=== PATIENT | female | born 1960 | race Caucasian/White ===

== ENCOUNTER → 2019-04-10 | Outpatient (CLI) | payer BC ==
--- NOTE | 2019-04-10 15:05 | Diagnostic Imaging Report ---
PROCEDURE: US Non-ob pelvis comp/trans. INDICATION: Nodules TECHNIQUE: Multiple real time jacques scale sonographic images were obtained of the pelvis transabdominally and transvaginally. CORRELATION STUDY: None FINDINGS: UTERUS: Enlarged at 13 x 9.7 x 7.1 cm. Multiple areas of heterogeneity are present with a mass type of appearance most compatible with fibroids. Largest 5.1 x 4.7 x 3.6 cm. Additional larger one 3.6 x 3.5 x 3.4 cm. ENDOMETRIUM: 10 mm. Endometrial thickness within normal limits for a premenopausal patient. (I have been given history of last menstrual period March first.) RIGHT OVARY: 2.5 x 3.2 x 1.5 cm Right ovary demonstrating transabdominal imaging only has a generally unremarkable appearance. LEFT OVARY: Not visualized on either transabdominal or transvaginal imaging. No significant free pelvic fluid. IMPRESSION: 1. Enlarged, probable fibroid uterus. Largest apparent fibroid approximately 5 cm in size. 2. Endometrial thickness at 10 mm. This would be considered within normal limits for premenopausal patient. I have been provided a history of previous LMP of 29 days ago. Clinical correlation regarding patient's menstrual history is recommended. Given age and if postmenopausal, this is considered abnormally thickened. Dictated by: Dictated on workstation # [id number]
== END ==
LOC: RAD 11:47
PROVIDERS: ATTEND Family Medicine
DX: N85.2 Hypertrophy of uterus (principal); D25.9 Leiomyoma of uterus, unspecified
CPT/HCPCS: 76830; 76856

== ENCOUNTER 2019-06-02 05:49 | Outpatient (CLI) | payer BC ==
[~2019-06-02] VITALS: Ht 157.5 cm; Wt 70.3 kg
[2019-06-02] MEDS ORDERED: ESCI10TA PO (15:14)
[2019-06-02] MEDS ORDERED: VIT1CAPS44 PO (15:14)
[2019-06-02] MEDS ORDERED: ASCO500C17 PO (15:14)
== END 2019-06-02 15:29 | disposition home or self-care (01) ==
LOC: PREOP 05:49
PROVIDERS: ATTEND Obstetrics & Gynecology
DX: Z01.818 Encounter for other preprocedural examination (principal)

== ENCOUNTER 2019-06-12 09:12 | Day surgery (SDC) | payer BC ==
[~2019-06-12] VITALS: Ht 157.5 cm; Wt 70.3 kg
[2019-06-12] VITALS (11 sets, daily range): BP systolic 99–124; BP diastolic 58–83
[~2019-06-12 09:12] MED LIST: ASCO500C17 PO; ESCI10TA PO; VIT1CAPS44 PO
--- OUTSIDE RECORDS SUMMARY | 2019-06-12 09:17 | XMS REPORT | CCD ---
Author Author Constance Coombs Organization Constance Coombs MD, [facility] Address [address] [place] [address] Phone Care Team Providers Care Entertainment & Media Correspondent Name Role Phone PP Unavailable CCM Unavailable Summary Purpose Interface Exchange Insurance Providers Payer name Policy type / Coverage type Covered republican ID Effective Begin Date Effective End Date [facility] Commercial Insurance [id number] Unknown Family history Father Diagnosis Age At Onset Alcoholism Unknown Arthritis Unknown Stroke Unknown Diabetes mellitus Type 2 Unknown Skin cancer Unknown Depression Unknown Mother Diagnosis Age At Onset Skin cancer Unknown Depression Unknown Arthritis Unknown Social History Social History Element Codes Description Effective Dates Marital status Unknown Dorota 01/28/2019 Number of children Unknown 2 01/28/[address]: 218436647 Never smoker 01/28/[address]: 173479903 Never drinks alcohol 01/28/2019 Allergies, Adverse Reactions, Alerts Substance Reaction Codes Entered Date Inactivated Date Status CODEINE nausea, RxNorm: 2670 01/28/2019 No Inactive Date Active MORPHINE SULFATE RxNorm: 7052 04/08/2019 No Inactive Date Active Past Medical History Illness Codes Condition Status Onset Date Resolved Date Encounter for gynecological examination (general) (routine) without abnormal findings ICD-9: V72.31 ICD-10: Z01.419 Active 04/08/2019 Unknown Hypertrophy of uterus ICD- 9: 621.2 ICD-10: N85.2 Active 04/08/2019 Unknown Encounter for general adult medical examination without abnormal findings ICD-9: V70.0 ICD-10: Z00.00 Active 01/28/2019 Unknown Problems Condition Codes Effective Dates Condition Status Encounter for gynecological examination (general) (routine) without abnormal findings ICD-9: V72.31 ICD-10: Z01.419 04/08/2019 Active Hypertrophy of uterus ICD- 9: 621.2 ICD-10: N85.2 04/08/2019 Active Encounter for general adult medical examination without abnormal findings ICD-9: V70.0 ICD-10: Z00.00 01/28/2019 Active Medications Medication Codes Instructions Start Date Stop Date Status Fill Instructions Lexapro 20 mg tablet RxNorm: 682628 1 Tablet(s) PO daily 01/28/2019 08/25/2019 Active please dispense generic Vitamin C 1,000 mg tablet RxNorm: 702290 1 Tablet(s) PO daily No Start Date Active flaxseed oil 1,000 mg capsule RxNorm: 786561 1 Capsule(s) PO daily No Start Date Active PreserVision Lutein oral RxNorm: 167088 oral No Start Date Active Medication Administered No Medication Administered data Immunizations No Immunization data Assessments Condition Codes Effective Dates Hypertrophy of uterus ICD-10: N85.2 ICD-9: 621.2 04/08/2019 Encounter for gynecological examination (general) (routine) without abnormal findings ICD-10: Z01.419 ICD-9: V72.31 04/08/2019 Encounter for general adult medical examination without abnormal findings ICD-10: Z00.00 ICD-9: V70.0 01/28/2019 Reason For Visit Reason For Visit Effective Dates Notes well woman exam (40-65 years) 04/08/2019 menopausal symptoms 01/28/2019 Results No Results data Review of Systems System Result Effective Dates Constitutional No recent illness 04/08/2019 Constitutional No chills 04/08/2019 Constitutional fatigue 04/08/2019 Constitutional No fever 04/08/2019 Constitutional No insomnia 04/08/2019 Constitutional No malaise 04/08/2019 Eyes No vision change 04/08/2019 Ears/Nose/Throat/Neck No dental pain 04/08/2019 Ears/Nose/Throat/Neck No dizziness 04/08/2019 Ears/Nose/Throat/Neck No dysphagia 04/08/2019 Ears/Nose/Throat/Neck No headache 04/08/2019 Ears/Nose/Throat/Neck No hearing loss 04/08/2019 Ears/Nose/Throat/Neck No nasal allergies 04/08/2019 Ears/Nose/Throat/Neck No sore throat 04/08/2019 Ears/Nose/Throat/Neck No postnasal drip 04/08/2019 Ears/Nose/Throat/Neck No sinus congestion 04/08/2019 Cardiovascular No chest pain/pressure 04/08/2019 Cardiovascular No dyspnea 04/08/2019 Cardiovascular No edema 04/08/2019 Cardiovascular No exercise intolerance 04/08/2019 Cardiovascular No fatigue 04/08/2019 Cardiovascular No near-syncope/dizziness 04/08/2019 Respiratory No chest tightness 04/08/2019 Respiratory No cough 04/08/2019 Respiratory No dyspnea 04/08/2019 Respiratory No pedal edema 04/08/2019 Gastrointestinal No abdominal pain 04/08/2019 Gastrointestinal No constipation 04/08/2019 Gastrointestinal No diarrhea 04/08/2019 Gastrointestinal No gastroesophageal reflux 04/08/2019 Gastrointestinal No nausea 04/08/2019 Gastrointestinal No vomiting 04/08/2019 Genitourinary/Nephrology No dysuria 04/08/2019 Genitourinary/Nephrology No nocturia 04/08/2019 Genitourinary/Nephrology No urinary incontinence 04/08/2019 Musculoskeletal No stiffness 04/08/2019 Musculoskeletal No swelling 04/08/2019 Musculoskeletal No muscle weakness 04/08/2019 Musculoskeletal No myalgias 04/08/2019 Dermatologic No rash 04/08/2019 Dermatologic No sores 04/08/2019 Neurologic No dizziness 04/08/2019 Neurologic No headache 04/08/2019 Neurologic No neck pain 04/08/2019 Neurologic No syncope 04/08/2019 Psychiatric anxiety 04/08/2019 Psychiatric depression 04/08/2019 Genitourinary/Nephrology menopausal symptoms 04/08/2019 Constitutional No recent illness 01/28/2019 Constitutional No chills 01/28/2019 Constitutional fatigue 01/28/2019 Constitutional No fever 01/28/2019 Constitutional No insomnia 01/28/2019 Constitutional No malaise 01/28/2019 Eyes No vision change 01/28/2019 Ears/Nose/Throat/Neck No dental pain 01/28/2019 Ears/Nose/Throat/Neck No dizziness 01/28/2019 Ears/Nose/Throat/Neck No dysphagia 01/28/2019 Ears/Nose/Throat/Neck No headache 01/28/2019 Ears/Nose/Throat/Neck No hearing loss 01/28/2019 Ears/Nose/Throat/Neck No nasal allergies 01/28/2019 Ears/Nose/Throat/Neck No sore throat 01/28/2019 Ears/Nose/Throat/Neck No postnasal drip 01/28/2019 Ears/Nose/Throat/Neck No sinus congestion 01/28/2019 Cardiovascular No chest pain/pressure 01/28/2019 Cardiovascular No dyspnea 01/28/2019 Cardiovascular No edema 01/28/2019 Cardiovascular No exercise intolerance 01/28/2019 Cardiovascular No fatigue 01/28/2019 Cardiovascular No near-syncope/dizziness 01/28/2019 Respiratory No chest tightness 01/28/2019 Respiratory No cough 01/28/2019 Respiratory No dyspnea 01/28/2019 Respiratory No pedal edema 01/28/2019 Gastrointestinal No abdominal pain 01/28/2019 Gastrointestinal No constipation 01/28/2019 Gastrointestinal No diarrhea 01/28/2019 Gastrointestinal No gastroesophageal reflux 01/28/2019 Gastrointestinal No nausea 01/28/2019 Gastrointestinal No vomiting 01/28/2019 Genitourinary/Nephrology No dysuria 01/28/2019 Genitourinary/Nephrology No nocturia 01/28/2019 Genitourinary/Nephrology No urinary incontinence 01/28/2019 Musculoskeletal No stiffness 01/28/2019 Musculoskeletal No swelling 01/28/2019 Musculoskeletal No muscle weakness 01/28/2019 Musculoskeletal No myalgias 01/28/2019 Dermatologic No rash 01/28/2019 Dermatologic No sores 01/28/2019 Neurologic No dizziness 01/28/2019 Neurologic No headache 01/28/2019 Neurologic No neck pain 01/28/2019 Neurologic No syncope 01/28/2019 Psychiatric anxiety 01/28/2019 Psychiatric depression 01/28/2019 Physical Exam Exam Name System Name Item Name Status Result Effective Dates Notes Full Exam - General 1994 Constitutional general appearance Development: well developed 04/08/2019 None Full Exam - General 1994 Constitutional general appearance Development: appears stated age 0504/08/2019 None Full Exam - General 1994 Constitutional general appearance Hygiene/Attention to Grooming: good hygiene 04/08/2019 None Full Exam - General 1994 Eyes conjunctiva/eyelids Overall: conjunctiva clear 04/08/2019 None Full Exam - General 1994 Eyes conjunctiva/eyelids Overall: cornea clear 04/08/2019 None Full Exam - General 1994 Eyes conjunctiva/eyelids Overall: eyelids normal 04/08/2019 None Full Exam - General 1994 Eyes pupils and irises Overall: pupils equal, round, reactive to light and accomodation 04/08/2019 None Full Exam - General 1994 Ears/Nose/Throat otoscopic exam Overall: external auditory canals clear 04/08/2019 None Full Exam - General 1994 Ears/Nose/Throat otoscopic exam Overall: tympanic membranes clear 04/08/2019 None Full Exam - General 1994 Ears/Nose/Throat lips/teeth/gingiva Overall: benign lips 04/08/2019 None Full Exam - General 1994 Ears/Nose/Throat lips/teeth/gingiva Overall: normal dentition 04/08/2019 None Full Exam - General 1994 Ears/Nose/Throat oral cavity/pharynx/larynx Overall: oral mucosa clear 04/08/2019 None Full Exam - General 1994 Ears/Nose/Throat oral cavity/pharynx/larynx Overall: oropharyngeal mucosa clear 04/08/2019 None Full Exam - General 1994 Ears/Nose/Throat oral cavity/pharynx/larynx Overall: hypopharynx benign 04/08/2019 None Full Exam - General 1994 Ears/Nose/Throat oral cavity/pharynx/larynx Overall: no masses 04/08/2019 None Full Exam - General 1994 Respiratory auscultation Overall: breath sounds clear bilaterally 04/08/2019 None Full Exam - General 1994 Respiratory respiratory effort/rhythm Overall: no retractions 04/08/2019 None Full Exam - General 1994 Respiratory respiratory effort/rhythm Overall: normal rate 04/08/2019 None Full Exam - General 1994 Cardiovascular extremities Overall: no clubbing 04/08/2019 None Full Exam - General 1994 Cardiovascular auscultation of heart Overall: regular rate 04/08/2019 None Full Exam - General 1994 Cardiovascular auscultation of heart Overall: normal heart sounds 04/08/2019 None Full Exam - General 1994 Abdomen abdominal exam Overall: no tenderness 04/08/2019 None Full Exam - General 1994 Abdomen abdominal exam Overall: normal bowel sounds 04/08/2019 None Full Exam - General 1994 Lymphatic neck nodes Overall: anterior cervical chain benign 04/08/2019 None Full Exam - General 1994 Lymphatic neck nodes Overall: posterior cervical chain benign 04/08/2019 None Full Exam - General 1994 Musculoskeletal spine, ribs and pelvis Overall: spine benign 04/08/2019 None Full Exam - General 1994 Musculoskeletal spine, ribs and pelvis Overall: sacroiliac joint benign 04/08/2019 None Full Exam - General 1994 Musculoskeletal spine, ribs and pelvis Overall: good posture 04/08/2019 None Full Exam - General 1994 Musculoskeletal head and neck Overall: head atraumatic 04/08/2019 None Full Exam - General 1994 Musculoskeletal head and neck Overall: cervical spine benign 04/08/2019 None Full Exam - General 1994 Integument inspection of skin Overall: few scattered moles, no gross abnormalities 04/08/2019 None Full Exam - General 1994 Neurologic cranial nerves Overall: crainial nerves 2 - 12 grossly intact 04/08/2019 None Full Exam - General 1994 Psychiatric orientation/consciousness Overall: oriented to person, place and time 04/08/2019 None Full Exam - General 1994 Psychiatric mood and affect Overall: normal mood and affect 04/08/2019 None Full Exam - General 1994 Genitourinary uterus Size: enlarged uterus 04/08/2019 None Full Exam - General 1994 Genitourinary uterus Uterine mass: non-tender 04/08/2019 None Full Exam - General 1994 Genitourinary uterus Uterine mass: firm 04/08/2019 enlarged firm uterus Full Exam - General 1994 Genitourinary cervix Inspection: friable 04/08/2019 None Full Exam - General 1994 Genitourinary cervix Cervical discharge: bloody 04/08/2019 None Full Exam - General 1994 Genitourinary labia and vagina Overall: normal hair distribution 04/08/2019 None Full Exam - General 1994 Genitourinary labia and vagina Overall: no lesions 04/08/2019 None Full Exam - General 1994 Genitourinary adnexa/parametria Adnexa: not palpable 04/08/2019 None Full Exam - General 1994 Constitutional general appearance Development: well developed 01/28/2019 None Full Exam - General 1994 Constitutional general appearance Development: appears stated age 0301/28/2019 None Full Exam - General 1994 Constitutional general appearance Hygiene/Attention to Grooming: good hygiene 01/28/2019 None Full Exam - General 1994 Eyes conjunctiva/eyelids Overall: conjunctiva clear 01/28/2019 None Full Exam - General 1994 Eyes conjunctiva/eyelids Overall: cornea clear 01/28/2019 None Full Exam - General 1994 Eyes conjunctiva/eyelids Overall: eyelids normal 01/28/2019 None Full Exam - General 1994 Eyes pupils and irises Overall: pupils equal, round, reactive to light and accomodation 01/28/2019 None Full Exam - General 1994 Ears/Nose/Throat otoscopic exam Overall: external auditory canals clear 01/28/2019 None Full Exam - General 1994 Ears/Nose/Throat otoscopic exam Overall: tympanic membranes clear 01/28/2019 None Full Exam - General 1994 Ears/Nose/Throat lips/teeth/gingiva Overall: benign lips 01/28/2019 None Full Exam - General 1994 Ears/Nose/Throat lips/teeth/gingiva Overall: normal dentition 01/28/2019 None Full Exam - General 1994 Ears/Nose/Throat oral cavity/pharynx/larynx Overall: oral mucosa clear 01/28/2019 None Full Exam - General 1994 Ears/Nose/Throat oral cavity/pharynx/larynx Overall: oropharyngeal mucosa clear 01/28/2019 None Full Exam - General 1994 Ears/Nose/Throat oral cavity/pharynx/larynx Overall: hypopharynx benign 01/28/2019 None Full Exam - General 1994 Ears/Nose/Throat oral cavity/pharynx/larynx Overall: no masses 01/28/2019 None Full Exam - General 1994 Respiratory auscultation Overall: breath sounds clear bilaterally 01/28/2019 None Full Exam - General 1994 Respiratory respiratory effort/rhythm Overall: no retractions 01/28/2019 None Full Exam - General 1994 Respiratory respiratory effort/rhythm Overall: normal rate 01/28/2019 None Full Exam - General 1994 Cardiovascular extremities Overall: no clubbing 01/28/2019 None Full Exam - General 1994 Cardiovascular auscultation of heart Overall: regular rate 01/28/2019 None Full Exam - General 1994 Cardiovascular auscultation of heart Overall: normal heart sounds 01/28/2019 None Full Exam - General 1994 Abdomen abdominal exam Overall: no tenderness 01/28/2019 None Full Exam - General 1994 Abdomen abdominal exam Overall: normal bowel sounds 01/28/2019 None Full Exam - General 1994 Lymphatic neck nodes Overall: anterior cervical chain benign 01/28/2019 None Full Exam - General 1994 Lymphatic neck nodes Overall: posterior cervical chain benign 01/28/2019 None Full Exam - General 1994 Musculoskeletal spine, ribs and pelvis Overall: spine benign 01/28/2019 None Full Exam - General 1994 Musculoskeletal spine, ribs and pelvis Overall: sacroiliac joint benign 01/28/2019 None Full Exam - General 1994 Musculoskeletal spine, ribs and pelvis Overall: good posture 01/28/2019 None Full Exam - General 1994 Musculoskeletal head and neck Overall: head atraumatic 01/28/2019 None Full Exam - General 1994 Musculoskeletal head and neck Overall: cervical spine benign 01/28/2019 None Full Exam - General 1994 Integument inspection of skin Overall: few scattered moles, no gross abnormalities 01/28/2019 None Full Exam - General 1994 Neurologic cranial nerves Overall: crainial nerves 2 - 12 grossly intact 01/28/2019 None Full Exam - General 1994 Psychiatric orientation/consciousness Overall: oriented to person, place and time 01/28/2019 None Full Exam - General 1994 Psychiatric mood and affect Overall: normal mood and affect 01/28/2019 None Procedures No Procedures data Vital Signs Date Vital 04/08/2019 Blood Pressure 1: 122/74 Code: 8480-6 BMI: 28.3 Code: 25987-5 Heart Rate 1: 86 bpm Height: 5'2" SpO2: 96% Weight: 155 lbs 01/28/2019 Blood Pressure 1: 110/72 Code: 8480-6 BMI: 28.3 Code: 23464-1 Heart Rate 1: 88 bpm Height: 5'2" SpO2: 98% Weight: 155 lbs Functional Status No Functional Status data History of Present Illness Symptom Name Status Result Effective Date Notes Pap Smear last normal performed on __-__-__ 04/08/2019 2-3 years ago - [employer]- vag US- many small uterine cysts- no problems Menstrual History last menstrual period 03-12-2019 04/08/2019 last in Nov 2018 Menstrual History irregular menses 04/08/2019 None Control none 04/08/2019 None Nutrition and Exercise overweight 04/08/2019 None Obstetrical History 1 total pregnancies 04/08/2019 twins Health Guidance baseline mammogram 04/08/2019 None Health Guidance self-breast exam 04/08/2019 None Sexual Activity experiences sexual satisfaction 04/08/2019 None Quality forgetfulness 01/28/2019 None Quality hot flashes 01/28/2019 None Quality irritability 01/28/2019 None Quality inability to concentrate 01/28/2019 None Onset and Resolution gradual in onset 01/28/2019 None Onset and Resolution gradual in onset 01/28/2019 None Onset of Symptom 1 years ago 01/28/2019 None Quality constant 01/28/2019 None Onset and Resolution gradual in onset 01/28/2019 None Onset of Symptom 1 years ago 01/28/2019 None Frequency of Episodes daily 01/28/2019 None Pertinent Findings depressed mood 01/28/2019 None Pertinent Findings difficulty concentrating 01/28/2019 None Pertinent Findings agitation 01/28/2019 None Advance Directives No Advance Directive data Encounters Encounter Performer Location Codes Date (81194) PREV VISIT EST AGE 40-64 Diagnosis: Encounter for gynecological examination (general) (routine) without abnormal findings[ICD10: Z01.419] Diagnosis: Hypertrophy of uterus[ICD10: N85.2] [facility] CPT- 4: 41128 04/08/2019 ([id number]) PREV VISIT NEW AGE 40-64 Diagnosis: Encounter for general adult medical examination without abnormal findings[ICD10: Z00.00] [facility] CPT-4: 31784 01/28/2019 Plan of Care Planned Activity Notes Codes Status Date Visit Plan: Well Adult Female - exam completed. Pap and breast exam completed. Pt will be called with results of her testing. Discussed with patient - advised pt that we will get her sent for transvaginal ultrasound and set her up with Dr. Rebolledo for evaluation due to enlarged uterus. 04/08/2019 Patient Education: Patient Medication Summary Completed 04/08/2019 Care Plan: US EXAM PELVIC COMPLETE Pending 04/08/2019 Care Plan: GC/CHL PRB Pending 04/08/2019 Care Plan: PAP 2 Pending 04/08/2019 Appointment: Constance Coombs WPtel: [address] [place] [address] Well Woman 03/06/2019 Visit Plan: Well Adult - pt was counseled about diet, exercise, and encouraged to follow a heart healthy diet and increase activity level. The patient was instructed to RTC yearly for well adult exams and PRN for acute illnesses. The pt was also instructed to have yearly labs for check of cholesterol, thyroid, chem panel, CBC, and renal functioning. mammogram, colonoscopy, dr. pena referral - hx of multiple basal cell CA. 01/28/2019 Appointment: Constance Coombs WPtel: [address] [place], [place] [id number] New Patient 01/28/2019 Patient Education: Patient Medication Summary Completed 01/28/2019 Care Plan: SCREENINGMAMMOGRAPHYDIGITAL LOINC : 11691-4 Pending 01/28/2019 Appointment: Constance Coombs WPtel: [address] [place], [place] [id number] New Patient 01/14/2019 Instructions Comment . Well Adult Female - exam completed. Pap and breast exam completed. Pt will be called with results of her testing. Discussed with patient - advised pt that we will get her sent for transvaginal ultrasound and set her up with Dr. Rebolledo for evaluation due to enlarged uterus. . Well Adult - pt was counseled about diet, exercise, and encouraged to follow a heart healthy diet and increase activity level. The patient was instructed to RTC yearly for well adult exams and PRN for acute illnesses. The pt was also instructed to have yearly labs for check of cholesterol, thyroid, chem panel, CBC, and renal functioning. mammogram, colonoscopy, dr. pena referral - hx of multiple basal cell CA.
--- OUTSIDE RECORDS SUMMARY | 2019-06-12 09:17 | XMS REPORT | CCD ---
Author Author Constance Coombs Organization Constance Coombs MD, [facility] Address [address] [place] [address] Phone Care Team Providers Care Catalyst Concentration Operator Name Role Phone PP Unavailable CCM Unavailable Summary Purpose Interface Exchange Insurance Providers Payer name Policy type / Coverage type Covered democrat ID Effective Begin Date Effective End Date [facility] Commercial Insurance [id number] Unknown Family history Father Diagnosis Age At Onset Alcoholism Unknown Arthritis Unknown Stroke Unknown Diabetes mellitus Type 2 Unknown Skin cancer Unknown Depression Unknown Mother Diagnosis Age At Onset Skin cancer Unknown Depression Unknown Arthritis Unknown Social History Social History Element Codes Description Effective Dates Marital status Unknown Dorota 01/28/2019 Number of children Unknown 2 01/28/[address]: 486033994 Never smoker 01/28/[address]: 554420171 Never drinks alcohol 01/28/2019 Allergies, Adverse Reactions, [...] Fill Instructions Lexapro 20 mg tablet RxNorm: 781218 1 Tablet(s) PO daily 01/28/2019 08/25/2019 Active please dispense generic Vitamin C 1,000 mg tablet RxNorm: 675837 1 Tablet(s) PO daily No Start Date Active flaxseed oil 1,000 mg capsule RxNorm: 537858 1 Capsule(s) PO daily No Start Date Active PreserVision Lutein oral RxNorm: 193699 oral No Start Date Active Medication Administered [...] (40-65 years) 04/08/2019 menopausal symptoms 01/28/2019 Results Observation Observation Code Item Item Code Result Date CT/GC Swab 2879004 Chlamydia Swb Not Detected 04/10/2019 CT/GC Swab 6941864 Gonorrhea Swb Not Detected 04/10/2019 GC/CHL PRB 2649474 Chl trach DNA TNP:Improper Specimen 04/10/2019 GC/CHL PRB 6172405 GC PROBE TNP:Improper Specimen 04/10/2019 Review of Systems System Result Effective Dates [...] accomodation 01/28/2019 None Full Exam - General 1995 Ears/Nose/Throat otoscopic exam Overall: external auditory canals clear 01/28/2019 None Full Exam - General 1994 Ears/Nose/Throat otoscopic exam Overall: tympanic membranes clear 01/28/2019 None Full Exam - General 1995 Ears/Nose/Throat lips/teeth/gingiva Overall: benign lips 01/28/2019 None Full Exam - General 1994 Ears/Nose/Throat lips/teeth/gingiva Overall: normal dentition 01/28/2019 None Full Exam - General 1994 Ears/Nose/Throat oral cavity/pharynx/larynx Overall: oral mucosa clear 01/28/2019 None Full Exam - General 1995 Ears/Nose/Throat oral cavity/pharynx/larynx Overall: oropharyngeal mucosa clear [...] 1: 122/74 Code: 8480-6 BMI: 28.3 Code: 76513-0 Heart Rate 1: 86 bpm Height: 5'2" SpO2: 96% Weight: 155 lbs 01/28/2019 Blood Pressure 1: 110/72 Code: 8480-6 BMI: 28.3 Code: 91496-4 Heart Rate 1: 88 bpm Height: 5'2" SpO2: 98% Weight: 155 lbs Functional Status No Functional Status data History of Present Illness Symptom Name Status Result Effective Date Notes Pap Smear last normal performed on __-__-__ 04/08/2019 2-3 years ago - [facility] [employer]- vag US- many small uterine cysts- no [...] data Encounters Encounter Performer Location Codes Date (30197) PREV VISIT EST AGE 40-64 Diagnosis: Encounter for gynecological examination (general) (routine) without abnormal findings[ICD10: Z01.419] Diagnosis: Hypertrophy of uterus[ICD10: N85.2] Constance Coombs MD, [facility] CPT- 4: 33960 04/08/2019 (46241) PREV VISIT NEW AGE 40-64 Diagnosis: Encounter for general adult medical examination without abnormal findings[ICD10: Z00.00] Constance Coombs MD, [facility] CPT-4: 89622 01/28/2019 Plan of Care Planned Activity Notes Codes Status Date Visit Plan: Well Adult Female - exam completed. Pap and breast exam completed. Pt will be called with results of her testing. Discussed with patient - advised pt that we will get her sent for transvaginal ultrasound and set her up with Dr. Rebolledo for evaluation due to enlarged uterus. 04/08/2019 Appointment: Constance Coombs WPtel: [address] [place] [address] Well Woman 04/08/2019 Patient Education: Patient Medication Summary Completed 04/08/2019 Care Plan: US EXAM PELVIC COMPLETE Pending 04/08/2019 Care Plan: PAP 2 Pending 04/08/2019 Appointment: Constance Coombs WPtel: [address] [place] [address] Well Woman 03/06/2019 Visit Plan: Well Adult [...] cell CA. 01/28/2019 Appointment: Constance Coombs WPtel: [address] [place] [address] Patient 01/28/2019 Patient Education: Patient Medication Summary Completed 01/28/2019 Care Plan: SCREENINGMAMMOGRAPHYDIGITAL LOINC : 18661-3 Pending 01/28/2019 [facility] [phone] [id number] [facility] 01/14/2019 Instructions Comment . Well [...]
--- OUTSIDE RECORDS SUMMARY | 2019-06-12 09:18 | XMS REPORT | Continuity of Care Document ---
Author Organization Unknown Address Unknown Phone Unavailable Allergies Active Description Code Type Severity Reaction Onset Reported/Identified Relationship to Patient Clinical Status Yes morphine [id number] Drug Allergy Severe HALLUCINATION 06/02/2019 Medications There is no data. Problems Date Dx Coded Attending Type Code Diagnosis Diagnosed By 04/11/2019 ROGE SANDERS MD Ot D25.9 LEIOMYOMA OF UTERUS, UNSPECIFIED 04/11/2019 ROGE SANDERS MD Ot N85.2 HYPERTROPHY OF UTERUS 04/24/2019 ROGE SANDERS MD Ot D25.9 LEIOMYOMA OF UTERUS, UNSPECIFIED 04/24/2019 ROGE SANDERS MD Ot N85.2 HYPERTROPHY OF UTERUS 06/02/2019 KEN EDMONDS DO Ot Z01.818 ENCOUNTER FOR OTHER PREPROCEDURAL EXAMIN 06/09/2019 ROGE SANDERS MD Ot D25.9 LEIOMYOMA OF UTERUS, UNSPECIFIED 06/09/2019 ROGE SANDERS MD Ot N85.2 HYPERTROPHY OF UTERUS Procedures There is no data. Results There is no data. Encounters ACCT No. Visit Date/Time Discharge Status Pt. Type Provider Facility Loc./Unit Complaint [id number] 06/02/2019 05:49:00 06/02/2019 15:29:00 DIS Outpatient KEN EDMONDS DO [facility] PREOP THICKENED ENDOMETRIUM [id number] 04/10/2019 11:47:00 04/10/2019 23:59:59 CLS Outpatient ROGE SANDERS MD [facility] RAD UTERINE NODULES [id number] 06/12/2019 10:45:00 PEN Preadmit KEN EDMONDS DO [facility] SDC THICKENED ENDOMETRIUM [id number] 06/02/2019 15:14:00 Document Registration
--- OUTSIDE RECORDS SUMMARY | 2019-06-12 09:18 | XMS REPORT | CCD ---
Author Author Constance Coombs Organization Constance Coombs MD, [facility] Address [address] [place] [address] Phone Care Team Providers Care Metal Bumper Name Role Phone PP Unavailable CCM Unavailable Summary Purpose Interface Exchange Insurance Providers Payer name Policy type / Coverage type Covered constitution party ID Effective Begin Date Effective End Date Blue Cross Blue Shield [facility] Blue Cross/Blue Shield [id number] 2019 Unknown Family history Father Diagnosis Age At Onset Alcoholism Unknown Arthritis Unknown Stroke Unknown Diabetes mellitus Type 2 Unknown Skin cancer Unknown Depression Unknown Mother Diagnosis Age At Onset Skin cancer Unknown Depression Unknown Arthritis Unknown Social History Social History Element Codes Description Effective Dates Marital status Unknown Dorota 01/28/2019 Number of children Unknown 2 01/28/[address]: 357715651 Never smoker 01/28/[address]: 518081250 Never drinks alcohol 01/28/2019 Allergies, Adverse Reactions, Alerts Substance Reaction Codes Entered Date Inactivated Date Status CODEINE nausea, RxNorm: 2670 01/28/2019 No Inactive Date Active Past Medical History Illness Codes Condition Status Onset Date Resolved Date Encounter for general adult medical examination without abnormal findings ICD-9: V70.0 ICD-10: Z00.00 Active 01/28/2019 Unknown Problems Condition Codes Effective Dates Condition Status Encounter for general adult medical examination without abnormal findings ICD-9: V70.0 ICD-10: Z00.00 01/28/2019 Active Medications Medication Codes Instructions Start Date Stop Date Status Fill Instructions Lexapro 20 mg tablet RxNorm: 739699 1 Tablet(s) PO daily 01/28/2019 08/25/2019 Active please dispense generic Vitamin C 1,000 mg tablet RxNorm: 287877 1 Tablet(s) PO daily No Start Date Active flaxseed oil 1,000 mg capsule RxNorm: 019000 1 Capsule(s) PO daily No Start Date Active PreserVision Lutein oral RxNorm: 825708 oral No Start Date Active Medication Administered No Medication Administered data Immunizations No Immunization data Assessments Condition Codes Effective Dates Encounter for general adult medical examination without abnormal findings ICD-10: Z00.00 ICD-9: V70.0 01/28/2019 Reason For Visit Reason For Visit Effective Dates Notes menopausal symptoms 01/28/2019 Results No Results data Review of Systems System Result Effective Dates Constitutional No recent illness 01/28/2019 Constitutional No [...] No Procedures data Vital Signs Date Vital 01/28/2019 Blood Pressure 1: 110/72 Code: 8480-6 BMI: 28.3 Code: 00860-5 Heart Rate 1: 88 bpm Height: 5'2" SpO2: 98% Weight: 155 lbs Functional Status No Functional Status data History of Present Illness Symptom Name Status Result Effective Date Notes Quality forgetfulness 01/28/2019 None Quality hot flashes [...] data Encounters Encounter Performer Location Codes Date (31044) PREV VISIT NEW AGE 40-64 Diagnosis: Encounter for general adult medical examination without abnormal findings[ICD10: Z00.00] Constance Coombs MD, [facility] CPT-4: 49186 01/28/2019 Plan of Care Planned Activity Notes Codes Status Date Visit Plan: Well Adult - pt was [...] hx of multiple basal cell CA. 01/28/2019 Patient Education: Patient Medication Summary Completed 01/28/2019 Care Plan: [facility] 34569-2 Pending 01/28/2019 Appointment: Constance Coombs WPtel: [address] [place], [place] [id number] New Patient 01/14/2019 Instructions Comment . Well Adult - pt was counseled [...]
[2019-06-12] MEDS ORDERED: LACTATED RINGERS 1,000 ML IV PRN (09:46)
[2019-06-12] MEDS ORDERED: D5 LR IV SOLUTION 1,000 ML IV SCH (10:23)
--- NOTE | 2019-06-12 10:23 | Progress Note-Pre Operative ---
Pre-Operative Progress Note H&P Reviewed The H&P was reviewed, patient examined and no changes noted. Date Seen by Provider: Jun 12, 2019 Time Seen by Provider: 10:20 Date H&P Reviewed: Jun 12, 2019 Time H&P Reviewed: 10:20 Pre-Operative Diagnosis: PMB, THICKENED ENDOMETRIUM KEN EDMONDS DO Jun 12, 2019 10:23
[2019-06-12] MEDS ORDERED: MIDAZOLAM 2 MG/2 ML (VERSED) VIAL ONE (10:26)
[2019-06-12] MEDS ORDERED: fentaNYL INJECTION 100 MCG/2 ML AMP ONE (10:27)
--- NOTE | 2019-06-12 10:27 | Discharge Inst-Women's Service ---
Discharge Inst-Women's Serv Depart Medication/Instructions New, Converted or Re-Newed RX: RX on Chart Problems Reviewed?: Yes Consults/Follow Up Additional Follow Up: Yes Orders/Referrals Dr. Edmonds in 2-3 weeks Activity Activity: Activity as Tolerated Driving Instructions: No Driving for 1 Week NO SMOKING: NO SMOKING Nothing Inside Vagina: No Douching, No [place], No Tampons Diet Discharge Diet: No Restrictions Symptoms to Report to : Bleeding Excessive, Pain Increased, Fever Over 101 Degrees F, Vaginal Bleeding Increase, Questions/Concerns For Any Problems or Questions: Contact Your Physician KEN EDMONDS DO Jun 12, 2019 10:27
[2019-06-12 10:28] LABS: BASOPHILS % (AUTO) 0 % (0-10); EOSINOPHILS # (AUTO) 0.1 10^3/uL (0.0-0.3); EOSINOPHILS % (AUTO) 1 % (0-10); HEMATOCRIT 38 % (35-52); LYMPHOCYTES # (AUTO) 1.3 X 10^3 (1.0-4.0); LYMPHOCYTES % (AUTO) 23 % (12-44); MEAN CORPUSCULAR HEMOGLOBIN 31 PG (25-34); MEAN CORPUSCULAR HGB CONC 34 G/DL (32-36); MEAN CORPUSCULAR VOLUME 91 FL (80-99); MEAN PLATELET VOLUME 10.7 FL (7.4-10.4); MONOCYTES # (AUTO) 0.3 X 10^3 (0.0-1.0); MONOCYTES % (AUTO) 5 % (0-12); NEUTROPHILS # (AUTO) 4.1 X 10^3 (1.8-7.8); NEUTROPHILS % (AUTO) 71 % (42-75); PLATELET COUNT 240 10^3/uL (130-400); RED CELL DISTRIBUTION WIDTH 12.2 % (10.0-14.5); WHITE BLOOD COUNT 5.8 10^3/uL (4.3-11.0)
[2019-06-12] MEDS ORDERED: KETOROLAC 30 MG/ML VIAL IVP ONE (10:30)
[2019-06-12] MEDS ORDERED: ONDANSETRON 4 MG/2 ML (SDV) Z0FRAN IVP PRN (10:30)
[2019-06-12] MEDS ORDERED: BUPIVACAINE 0.25% 30 ML (SENSORCAINE) VIAL ONE (10:48)
[2019-06-12] MEDS ORDERED: proPOfol 200 MG/20 ML (DIPRIVAN) VIAL IV ONE (11:00)
[2019-06-12] MEDS ORDERED: KETOROLAC 30 MG/ML VIAL ONE (11:08)
[2019-06-12] MEDS ORDERED: ONDANSETRON 4 MG/2 ML (SDV) Z0FRAN ONE (11:08)
[2019-06-12] MEDS ORDERED: DEXAMETHASONE 10 MG/ML (DECADRON) 1 ML VIAL ONE (11:08)
[2019-06-12] MEDS ORDERED: SEVOFLURANE (ULTANE) 15 ML INHAL SOLN ONE ×2 (11:08)
[2019-06-12] MEDS ORDERED: LIDOCAINE PF 2% 5 ML (XYLOCAINE) VIAL ONE (11:08)
--- NOTE | 2019-06-12 12:56 | Anesthesia-General Post-Op ---
General Patient Condition Mental Status/LOC: Same as Preop Cardiovascular: Satisfactory Nausea/Vomiting: Absent Respiratory: Satisfactory Pain: Controlled Complications: Absent Post Op Complications Complications None Follow Up Care/Instructions Patient Instructions None needed. Anesthesia/Patient Condition Patient Condition Patient is doing well, no complaints, stable vital signs, no apparent adverse anesthesia problems. No complications reported per nursing. ALEXY DSOUZA CRNA Jun 12, 2019 12:56
--- NOTE | 2019-06-13 00:45 | OPERATIVE REPORT ---
DATE OF SERVICE: PREOPERATIVE DIAGNOSES: 1. A 59-year-old female with postmenopausal bleeding. 2. Thickened endometrium. POSTOPERATIVE DIAGNOSES: 1. A 59-year-old female with postmenopausal bleeding. 2. Thickened endometrium. PROCEDURE: D and C. SURGEON: Tanner Rebolledo DO ANESTHESIA: General endotracheal. URINE OUTPUT: 30 mL clear during the procedure, drained by straight catheterization. ESTIMATED BLOOD LOSS: Minimal. FLUIDS: 700 mL lactated Ringer's solution. SPECIMENS SENT: Endometrial curettings. INDICATIONS FOR PROCEDURE: This is a 59-year-old female patient, who had undergone an attempted endometrial biopsy in the office and had inadequate sampling performed. This was after the finding of postmenopausal bleeding as well as a thickened endometrium on ultrasound, I discussed with the patient proceeding with operative sampling in the form of D and C. Risks of procedure were discussed with the patient in detail and after all of her questions were answered, consent was obtained in the preoperative area and the patient was taken to the operating room. OPERATIVE REPORT IN DETAIL: Once in the operating room, anesthesia was found to be adequate. She was placed in dorsal lithotomy position, prepped and draped in normal sterile fashion. The bladder was drained using straight catheterization. A weighted speculum inserted to the patient's vagina. Right angle retractor was used to visualize the cervix, which was grasped at the 12 o'clock position using a single tooth tenaculum. The uterus was then gently sounded and found to have a 7 cm uterine cavity depth. I then gently dilated the cervix using Hegar dilators to maximum dilatation of approximately 6 mm at which point I removed the Hegar dilator and proceeded with performing a gentle curetting of the endometrium using a medium size endometrial curette. This was performed methodically and clearing of all endometrial surfaces. A small to moderate amount of endometrial curetting was collected and sent as endometrial curettings, after which there was no active bleeding noted from any of my dissection or tenaculum planes. The tenaculum was removed. There was a small amount of bleeding from the anterior lip of the cervix, which was made hemostatic using silver nitrate. All the other instruments were removed from the patient's vagina. The patient tolerated the procedure well and sent to recovery area in stable condition. Lap and sponge counts were correct at the end of the procedure. Instrument count was correct as well. Job ID: [id number] DocumentID: [id number] Dictated Date: 06/12/2019 13:11:31 Casting Assistant Date: 06/13/2019 00:45:20 Dictated By: DO SOILA AMBROCIO
== END 2019-06-12 13:30 | disposition home or self-care (01) ==
LOC: SDC 09:12
PROVIDERS: ATTEND Obstetrics & Gynecology
DX: R93.89 Abnormal findings on diagnostic imaging of other specified body structures (principal); N95.0 Postmenopausal bleeding; N88.2 Stricture and stenosis of cervix uteri; F41.9 Anxiety disorder, unspecified; Z88.5 Allergy status to narcotic agent; Z79.899 Other long term (current) drug therapy; Z83.3 Family history of diabetes mellitus; Z82.61 Family history of arthritis; Z80.8 Family history of malignant neoplasm of other organs or systems
CPT/HCPCS: 36415; 85025; 86850; 86900; 86901; 87081; 88305; 94664

== ENCOUNTER → 2019-08-05 | Outpatient (CLI) | payer BC ==
--- NOTE | 2019-08-05 15:06 | Diagnostic Imaging Report ---
INDICATION: Routine screening. COMPARISON: 01/19/2017 and 12/28/2015. TECHNIQUE: 2D and 3D bilateral screening mammography was performed with CAD. FINDINGS: Scattered fibroglandular densities are identified bilaterally. There is questionable architectural distortion in the upper aspect of the left breast, best seen on the MLO view. This may be laterally located on the CC view. This is best seen on tomographic CC image 35 and tomographic MLO image 22. Additional views are recommended. The right breast is unremarkable. No suspicious calcifications are seen. The axillae are unremarkable. IMPRESSION: Questionable architectural distortion in the upper outer left breast. Additional views are recommended. ACR BI-RADS Category 0: Incomplete. (Needs additional imaging evaluation). Result letter will be mailed to the patient. Note: At least 10% of breast cancer is not imaged by mammography. Dictated by: Dictated on workstation # [id number]
== END ==
LOC: RAD 08:34
PROVIDERS: ATTEND Nurse Practitioner Family
DX: Z12.31 Encounter for screening mammogram for malignant neoplasm of breast (principal)
CPT/HCPCS: 77067

== ENCOUNTER → 2019-08-14 | Outpatient (CLI) | payer BC ==
--- NOTE | 2019-08-14 19:30 | Diagnostic Imaging Report ---
EXAMINATION: Unilateral diagnostic left mammogram. INDICATION: Abnormal screening mammogram. The current study was also evaluated with a Computer Aided Detection (CAD) system. 3-D tomosynthesis was also performed and reviewed. FINDINGS: The screening mammogram performed on 08/05/2019 raised a question of an area of architectural distortion in the upper-outer aspect of the left breast. On this study, there does appear to be a small area of architectural distortion in this region. This finding is worrisome for malignancy. I would recommend that ultrasound be performed for further study. IMPRESSION: Ultrasound would be recommended for further evaluation of the upper-outer aspect of the left breast. ACR BI-RADS Category 0: Incomplete. (Needs additional imaging evaluation). Result letter will be mailed to the patient. Note: At least 10% of breast cancer is not imaged by mammography. Dictated by: Dictated on workstation # [id number]
--- NOTE | 2019-08-14 19:44 | Diagnostic Imaging Report ---
EXAMINATION: Ultrasound limited left breast. INDICATION: Left breast distortion. FINDINGS: The diagnostic mammogram performed earlier today noted an area of architectural distortion in the upper-outer quadrant of the left breast. The ultrasound examination of this area reveals that there is a poorly-defined 1.0 x 0.6 x 0.4 cm hypoechoic, taller than wide area with shadowing. This appearance is worrisome for malignancy and I would recommend that an ultrasound-guided biopsy be performed. IMPRESSION: 1. There is a poorly-defined hypoechoic area in the upper-outer aspect of the left breast. Most likely, this corresponds to the area of architectural distortion seen on the mammogram. This finding is worrisome for malignancy. Recommendations as above. 2. These results were discussed with Dr. Constance Coombs. ACR BI-RADS Category 4: Suspicious abnormality. Result letter will be mailed to the patient. Note: At least 10% of breast cancer is not imaged by mammography. Dictated by: Dictated on workstation # [id number]
== END ==
LOC: RAD 13:10
PROVIDERS: ATTEND Family Medicine
DX: N64.89 Other specified disorders of breast (principal); R92.8 Other abnormal and inconclusive findings on diagnostic imaging of breast
CPT/HCPCS: 76642

== ENCOUNTER → 2019-08-18 | Outpatient (CLI) | payer BC ==
[~2019-08-18] VITALS: Ht 157.5 cm; Wt 68.2 kg
[~2019-08-18] MED LIST changes: +LIDOCAINE 1% INJ 20 ML 20 ML VIAL INJ ONE
--- NOTE | 2019-08-18 12:09 | Diagnostic Imaging Report ---
INDICATION: Left breast mass. Patient presents for ultrasound-guided biopsy. TECHNIQUE: The patient was brought to the procedure room and placed on the table in the supine position. Ultrasound imaging of the left breast was performed to evaluate for an appropriate entry site. The left breast was then prepped and draped in the usual sterile fashion. A small amount of 1% lidocaine was utilized for local anesthesia. A total of four core biopsies was made through the area of ill-defined hypoechogenicity at the 2 o'clock location in the left breast 6 cm from the nipple. Biopsies were obtained with a 14-gauge Achieve needle. A marker clip was then deployed adjacent to the lesion. Hemostasis was obtained using manual compression. IMPRESSION: Ultrasound-guided core biopsy of the shadowing hypoechoic mass at the 2 o'clock location of the left breast, 6 cm from the nipple. Pathology results are currently pending. Dictated by: Dictated on workstation # [id number]
--- NOTE | 2019-08-18 12:10 | Diagnostic Imaging Report ---
INDICATION: Left breast biopsy. FINDINGS: 2D exaggerated CC and ML views of the left breast were obtained post biopsy. The images demonstrate a biopsy marker clip in the upper outer left breast. IMPRESSION: The marker clip is located in the upper outer left breast at posterior depth. Dictated by: Dictated on workstation # [id number]
== END ==
LOC: RAD 09:37
PROVIDERS: ATTEND Family Medicine
DX: N63.21 Unspecified lump in the left breast, upper outer quadrant (principal); Z98.890 Other specified postprocedural states
CPT/HCPCS: 19083; 88305; 88360

== ENCOUNTER 2019-08-20 09:19 | Outpatient (RCR) | payer BC ==
[~2019-08-20 09:19] MED LIST changes: -LIDOCAINE 1% INJ 20 ML 20 ML VIAL INJ ONE
== END 2019-11-18 | disposition home or self-care (01) ==
LOC: ONC 09:19
PROVIDERS: ATTEND Internal Medicine Hematology & Oncology
DX: C50.412 Malignant neoplasm of upper-outer quadrant of left female breast (principal); Z88.5 Allergy status to narcotic agent; Z79.899 Other long term (current) drug therapy; Z85.828 Personal history of other malignant neoplasm of skin; Z17.0 Estrogen receptor positive status [ER+]
CPT/HCPCS: 99214

== ENCOUNTER 2023-08-22 05:41 | Outpatient (CLI) | payer OTHER ==
[~2023-08-22] VITALS: Ht 154.9 cm; Wt 75.8 kg
[2023-08-22] MEDS ORDERED: MAGN400C PO (10:10)
[2023-08-22] MEDS ORDERED: CALC-697 PO (10:10)
== END 2023-08-22 10:17 | disposition home or self-care (01) ==
LOC: PREOP 05:41
PROVIDERS: ATTEND Internal Medicine
DX: Z01.818 Encounter for other preprocedural examination (principal)

== ENCOUNTER 2023-08-31 07:51 | Day surgery (SDC) | payer OTHER ==
--- NOTE | 2023-08-18 17:35 | HISTORY AND PHYSICAL ---
COLONOSCOPY HISTORY AND PHYSICAL HISTORY OF PRESENT ILLNESS: The patient is a 63-year-old white female referred by Dr. Coombs for colonoscopy for preventative services with a recent positive Cologuard. She reports no family history of colon cancer. She denies melena or bright red blood per rectum, change in bowel habit, abdominal pain or change in weight. She does have a personal history of breast cancer diagnosed in 2019 for which she underwent lumpectomy and radiation therapy. PAST MEDICAL HISTORY: Other than breast surgery she reports no other surgeries. SOCIAL HISTORY: She works in [employer]. Occasional small volume alcohol intake. No past smoking history. FAMILY HISTORY: Father at the age of 84, reported natural causes. Mother living at the age of 85 with Alzheimer's dementia. REVIEW OF SYSTEMS: CONSTITUTIONAL: Denies night sweats, chills, fever or change in weight. GASTROINTESTINAL: As noted in the HPI. CARDIOVASCULAR: Denies chest pain, orthopnea, PND, or pedal edema. PULMONARY: Denies cough, wheezing or shortness of breath. PHYSICAL EXAMINATION: GENERAL: Reveals a white female, appeared to be in no acute distress. HEENT: Unremarkable. Sclerae nonicteric. CHEST: Clear to auscultation. CARDIOVASCULAR: Reveals regular rate and rhythm without murmur, S3, or S4. ABDOMEN: Soft, supple without mass, organomegaly, or tenderness. EXTREMITIES: Revealed no cyanosis, clubbing or edema. ASSESSMENT AND PLAN: The patient is being set up for preventative colonoscopy for a positive Cologuard. Prep instructions were given and questions were answered. I thank you for the referral of this pleasant lady. Job ID: [id number] DocumentID: [id number] Dictated Date: 08/15/2023 11:46:56 Editor Greeting Card Date: 08/15/2023 12:12:00 Dictated By: KEVIN BECKMAN MD
[~2023-08-31] VITALS: Ht 154.9 cm; Wt 75.8 kg
[~2023-08-31 07:51] MED LIST changes: +CALC-697 PO; +MAGN400C PO
[2023-08-31] MEDS ORDERED: LACTATED RINGERS 1,000 ML 1,000 ML IV STA (07:56)
[2023-08-31 08:07] VITALS: BP 107/86
--- NOTE | 2023-08-31 08:26 | Pre-Op Note & Conscious Sedat ---
Pre-Operative Progress Note Date H&P Reviewed: Aug 31, 2023 Time H&P Reviewed: 08:25 History & Physical: H&P Reviewed, Patient Examed, No changes noted Pre-Op Diagnosis: positive cologuard Moderate Sedation PreProcedure ASA Score 2 Airway Lungs Heart ASA score ASA 1: a normal healthy patient ASA 2: a patient with a mild systemic disease (mid diabetes, controlled hypertension, obesity ASA 3: a patient with a severe systemic disease that limits activity (angina, COPD, prior Myocardial infarction) ASA 4: a patient with an incapacitating disease that is a constant threat to life (CHF, renal failure) ASA 5: a moribund patient not expected to survive 24 hrs. (ruptured aneurysm) ASA 6: a declared brain- patient whose organs are being harvested. For emergent operations, add the letter E after the classification Mallampati Classification Grade 2 Sedation Plan Analgesia, Amnesia, Plan communicated to team members, Discussed options with patient/fam, Discussed risks with patient/fam The patient is an appropriate candidate to undergo the planned procedure, sedation, and anesthesia. The patient immediately re-assessed prior to indication. KEVIN BECKMAN MD Aug 31, 2023 08:26
[2023-08-31] MEDS ORDERED: MIDAZOLAM INJ 2 MG/2 ML VIAL ONE (08:52)
[2023-08-31] MEDS ORDERED: FLUMAZENIL 0.1 MG/ML 10 ML VIAL IV ONE (09:15)
--- NOTE | 2023-08-31 09:34 | Progress Note-Post Operative ---
Post-Procedure Note Physician (s)/Solvent Plant Treater (s) Physician KEVIN BECKMAN MD Pre-Procedure Diagnosis Pre-Procedure Diagnosis: positive cologuard Post-Procedure Diagnosis Post-operative diagnosis: Prior to undergoing colonoscopy digital rectal evaluation was performed. Anal sphincter tone was normal and the perianal reflexes intact. No abnormalities noted on digital inspection anal canal or distal rectal vault. The colonoscope was then inserted into the rectum and under direct visualization advanced to the cecum. The cecum was identified by the indication of the ileocecal valve cecal strap and appendiceal orifice. Photographic documentation was obtained. Careful suction was made as the colonoscope withdrawn. Quality the prep was good. Findings there are no evidence for internal or external hemorrhoids and the rectum was unremarkable. Mild diverticular disease noted in the sigmoid colon was noted 1 fecalith was noted in the distal transverse colon and a moderate size diverticulum. No other abnormalities noted in these areas the night. Present in the proximal transverse colon was a 3 x 6 mm sessile adenomatous appearing polyp not ulcerated it was photographed and biopsied and ablated and submitted for histopathology with no blood loss. The splenic flexure ascending colon and cecum are unremarkable. A/P 1. One 3 x 6 mm sessile polyp was removed in the proximal transverse colon with no other evidence for neoplasia on today's evaluation. Mild diverticular disease was noted in the sigmoid colon and 1 fecalith was noted in the distal transverse moderate size diverticulum. There is no evidence of diverticulitis. Would advocate repeat surveillance colonoscopy in 3 years as long as there are no surprises on histopathology report. I thank you for the furl this pleasant lady sincerely Kevin Beckman MD. CC: Dr. Constance SANDERS MD. KEVIN BECKMAN MD Aug 31, 2023 09:34
[2023-08-31 09:36] VITALS: BP 125/58
[2023-08-31 09:40] VITALS: BP 125/58
[2023-08-31 10:10] VITALS: BP 127/61
--- NOTE | 2023-08-31 10:12 | Anesthesia-General Post-Op ---
MAC Patient Condition Mental Status/LOC: Same as Preop Cardiovascular: Satisfactory Nausea/Vomiting: Absent Respiratory: Satisfactory Pain: Controlled Complications: Absent Post Op Complications Complications None Follow Up Care/Instructions Patient Instructions None needed. Anesthesiology Discharge Order Discharge Order Patient is doing well, no complaints, stable vital signs, no apparent adverse anesthesia problems. No complications reported per nursing. CURTIS OLIVERA CRNA Aug 31, 2023 10:12
[2023-08-31 10:25] VITALS: BP 127/61
== END 2023-08-31 10:25 | disposition home or self-care (01) ==
LOC: ENDO 07:51
PROVIDERS: ATTEND Internal Medicine
DX: Z12.11 Encounter for screening for malignant neoplasm of colon (principal); K63.5 Polyp of colon; K57.30 Diverticulosis of large intestine without perforation or abscess without bleeding